=== PATIENT | female | born 1960 | race Two or more races ===

== ENCOUNTER 2024-09-28 08:56 | Emergency (ER) | payer MEDICAID, OTHER ==
[~2024-09-28] VITALS: Ht 172.7 cm; Wt 103.0 kg
--- NOTE | 2024-09-28 10:26 | ED.PDOC ---
Musculoskeletal HPI Comments 64-year-old female who presents to the ED for a chief complaint of left knee pain. Patient states that she at left knee replacement recently And states two weeks prior she had fall onto bilateral knees. The patient states that she was taking out the trash and slipped and fell on her bilateral knees. Patient has since been having exacerbation of pain. Patient states that she called PCP and was told to the come to the ED for further evaluation. Patient in the ED rates the pain 10/10 constant with noted exacerbation of pain with movement and no relieving factors. Patient otherwise denies any associated symptoms. Chief Complaint: Lower Extremity Time Seen by MD: 10:21 Reviewed Notes: Medications, Allergies Allergies: Coded Allergies: Lisinopril (Verified Allergy, Unknown, 09/28/24) Penicillins (Verified Allergy, Unknown, 09/28/24) Uncoded Allergies: STERI STRIP (Allergy, Unknown, 09/28/24) TAPE (Allergy, Unknown, 09/28/24) Home Meds Active Scripts Diclofenac Sodium (Topical) (Voltaren Arthritis Pain) 1 % Gel, 4 GRAMS EX Q6HP PRN for 10 Days, #60 GEL 0 Refills Prov:EDNA HAUSER NP 09/28/24 Information Source: Patient Mode of Arrival: Ambulatory Brought in by: self Past Medical History PAST MEDICAL HISTORY: Denies Surgical History: Denies all surgeries GUEST SERVICE HOST History: Denies all GUEST SERVICE HOST Hx Family History Family History: Reviewed,noncontributory to illness Social History Smoker: Non-Smoker Alcohol: Denies ETOH Use Drugs: Denies Drug Use Lives In: Home All Other Systems: Reviewed and Negative (See HPI) Physical Exam Extremities: Tender (To left tibial tuberosity), Other (On TTP noted) Was a procedure done? Was a procedure done?: No Differential Diagnosis EXT Differential Diagnosis: Fracture, Sprain, Dislocation, Arthritis X-Ray, Labs, Meds, VS Vital Signs Date Time Temp Pulse Resp B/P (MAP) Pulse Ox O2 Delivery O2 Flow Rate FiO2 09/28/24 12:10 77 17 97 Room Air 09/28/24 12:10 98.3 77 17 149/67 (94) 97 98.3 09/28/24 08:58 97.8 85 16 151/86 99 97.8 Current Medications Medications (Trade) Dose Ordered Sig/Dannie Route Start Time Stop Time Status Last Admin Ketorolac Tromethamine (Toradol Injection) 60 mg ONCE ONCE IM 09/28/24 10:15 09/28/24 10:16 DC 09/28/24 10:40 Acetaminophen/ Hydrocodone Bitart ([place] 7.5/325MG Tab) 1 tab ONCE ONCE PO 09/28/24 10:15 09/28/24 10:16 DC 09/28/24 10:39 [place] [address] Ph: [phone] DIAGNOSTIC IMAGING Diagnostic Imaging Report : [id number] Signed PATIENT: CADENCE DIMAS ACCT: [id number] UNIT: [id number] : 1960 LOC: ER ROOM / BED: / AGE / SEX: 64 / F ADM STATUS: REG ER SERVICE 1005 ORDERING PHYSICIAN: EDNA HAUSER PILE DRIVING SUPERVISOR PROCEDURE(s): LKNCT - CT L KNEE WO CONTRAST REASON: Fall s/p 2 wks ago ORDER NUMBER(s): [id number], ACCESSION NUMBER(s): [id number] INDICATION: Fall s/p 2 wks ago, knee pain COMPARISON: None TECHNIQUE: CT of the left knee was performed without contrast. Volume transverse images were obtained and reconstructed in multiple planes using bone and soft tissue algorithms. Radiation Dose Information: CT Dose: CTDI volume is 8.18 mGy. Dose-length product is 263.21 mGy*cm FINDINGS: The alignment is normal. Moderate to severe tricompartmental degenerative changes of the knee joint most prominent at the patellofemoral joint space. There is no fracture, dislocation or aggressive osseous lesion. There is no joint effusion. The soft tissues are normal. IMPRESSION: No acute fracture or dislocation. ATED BY: ISRRAEL ZACARIAS MD DICTATED DATE/TIME: 09/28/241056 SIGNED BY: ISRRAEL ZACARIAS MD SIGNED DATE/TIME: 09/28/241056 CC: X-Ray, Labs, Meds, VS Comment 64-year-old female who presents to the ED for a chief complaint of left knee pain. Patient arrives alert and oriented, ABC's intact, afebrile, vital signs stable, saturating well in room air Diagnostic imaging ordered by me and results interpreted by radiology : Labs in the ED showed (pertinent+ and then pertinent-) Patient was given:_. Tolerated medications with no adverse reaction. Additional MDM Review of External, Non-ED records: External records reviewed. Discussion with independent historian (EMS, family) history obtained from the patient/parents (if applicable) at bedside Chronic conditions affecting care: None Social determinants of health affecting care: None Consideration of admission (observation or admission): I considered escalation of care to admission for this patient, however given the reassuring workup, the patient is safe for outpatient management. Discussion with the Radiology: No Tests considered but not performed: Prescription medication considered but not given: 12 lead EKG interpretation: Patient Education/Counseling: Diagnosis, Treatment Family Education/Counseling: No Family Present Departure 1 Departure Time of Disposition: 11:19 Impression: Primary Impression: Tricompartment degenerative joint disease of knee Qualified Codes: M17.12 - Unilateral primary osteoarthritis, left knee Disposition: HOME / SELF CARE / HOMELESS Condition: Stable e-Prescriptions Diclofenac Sodium (Topical) (Voltaren Arthritis Pain) 1 % Gel 4 GRAMS EX Q6HP PRN for 10 Days, #60 GEL 0 Refills Prov: EDNA HAUSER NP 09/28/24 Discharged With: Self Critical Care Note Critical Care Time?: No Stability Stability form required: No Heart Score Heart Score: Heart Score Response (Comments) Value History N/A 0 EKG N/A 0 Age N/A 0 Risk Factors N/A 0 Troponin N/A 0 Total 0 I personally scribed for EDNA HAUSER NP (OVIDIO) on 09/28/24 at 10:26. Electronically submitted by Lester Aldana ([employer]). I personally scribed for EDNA HAUSER NP (OVIDIO) on 09/28/24 at 11:29. Electronically submitted by Lester Aldana ([email or web address]). EDNA HAUSER NP Sep 28, 2024 10:26
[2024-09-28] MEDS: HYDROcodone-ACET 7.5/325MG TAB PO ONE (10:39)
[2024-09-28] MEDS: KETOROLAC TROMETH 60MG/2ML VIAL IM ONE (10:40)
--- NOTE | 2024-09-28 11:00 | DVH ---
INDICATION: Fall s/p 2 wks ago, knee pain COMPARISON: None TECHNIQUE: CT of the left knee was performed without contrast. Volume transverse images were obtained and reconstructed in multiple planes using bone and soft tissue algorithms. Radiation Dose Information: CT Dose: CTDI volume is 8.18 mGy. Dose-length product is 263.21 mGy*cm FINDINGS: The alignment is normal. Moderate to severe tricompartmental degenerative changes of the knee joint most prominent at the juárez llofemoral joint space. There is no fracture, dislocation or aggressive osseous lesion. There is no joint effusion. The soft tissues are normal. IMPRESSION: No acute fracture or dislocation.
[2024-09-28] MEDS ORDERED: DICL1GEL59 EX (11:20)
[2024-09-28 12:10] VITALS: BP 149/67; PULSE 77; RESP 17; TEMP 98.3; O2SAT 97
== END 2024-09-28 12:11 | disposition home or self-care (01) ==
LOC: ER 08:56
DX: M17.12 Unilateral primary osteoarthritis, left knee (principal); Z88.0 Allergy status to penicillin; Z88.8 Allergy status to other drugs, medicaments and biological substances
CPT/HCPCS: 73700; 96372; 99285; J1885